=== PATIENT | female | born 1960 | race Caucasian/White ===

== ENCOUNTER 2016-05-27 08:21 | Observation (INO) | payer OTHER ==
[2016-05-27] MEDS ORDERED: MORPHINE SULFATE 2 MG/ML SYRINGE IVP STA (08:24)
[2016-05-27] MEDS ORDERED: NITROGLYCERIN OINT 1 INCH/GM PACKET TOPICAL STA (08:24)
--- NOTE | 2016-05-27 08:30 | ED ---
General Adult HPI - General Stated complaint: chest pain Time Seen by Provider: 05/27/16 08:21 Source: RN notes reviewed - History of Present Illness Initial comments: Is a 56-year-old female with past medical history significant for an LA with a stent placement. Patient also history significant for high blood pressure and continues to smoke. Patient woke up today with severe left-sided chest pain is nonradiating she describes the pain as pressure. Patient states she took a nitro at home and helped when EMS arrived they gave her 2 more nitroglycerin and that helped as well however she still remains a 5 out of 10 pain. Patient states she also feels short of breath with the pain and she was sweating earlier. Patient denies any nausea vomiting per patient denies any abdominal pain patient denies any headache patient denies any lightheadedness dizziness or near syncopal episode. Patient denies any numbness or weakness. Patient denies any recent fever chills or cough. Patient states the pain is similar to the pain she's had previously with an LA. - Related Data Home Medications Medication Instructions Recorded Confirmed ALPRAZolam [Xanax] 0.5 mg PO DAILY@1400 05/27/16 05/27/16 ALPRAZolam [Xanax] 1 mg PO BID@0800,2200 05/27/16 05/27/16 Albuterol Inhaler [Ventolin Hfa 2 puff INHALATION RT-Q6H PRN 05/27/16 05/27/16 Inhaler] Calcitriol 0.25 mcg PO BID 05/27/16 05/27/16 Calcium Carbonate [Calcium] 600 mg PO BID 05/27/16 05/27/16 HYDROcodone/APAP 7.5-325MG [[place] 1 tab PO TID PRN 05/27/16 05/27/16 7.5-325] Levothyroxine Sodium [Synthroid] 112 mcg PO DAILY 05/27/16 05/27/16 Umeclidinium [place] [[place]cr[place] 1 puff INHALATION RT-DAILY 05/27/16 05/27/16 Ellipta] Venlafaxine HCl [Effexor] 75 mg PO DAILY 05/27/16 05/27/16 amLODIPine [Norvasc] 5 mg PO DAILY 05/27/16 05/27/16 Allergies Allergy/AdvReac Type Severity Reaction Status Date / Time fluoxetine [From Prozac] Allergy Unknown Verified 05/27/16 08:42 shellfish derived [Shellfish] Allergy Unknown Verified 05/27/16 08:42 Review of Systems ROS Statement: Those systems with pertinent positive or pertinent negative responses have been documented in the HPI. ROS Other: All systems not noted in ROS Statement are negative. Past Medical History - Past Family History Father Family Medical History: Myocardial Infarction (LA) Additional Family Medical History / Comment(s): Father at the age of 76yrs from a LA. Mother Family Medical History: Myocardial Infarction (LA) Additional Family Medical History / Comment(s): Mother of a LA at the age of 65yrs. General Exam - General Exam Comments Initial Comments: GENERAL: Patient is well-developed and well-nourished. Patient is nontoxic and well- hydrated and is in mild distress. ENT: Neck is soft and supple. No significant lymphadenopathy is noted. Oropharynx is clear. Moist mucous membranes. Neck has full range of motion without eliciting any pain. EYES: The sclera were anicteric and conjunctiva were pink and moist. Extraocular movements were intact and pupils were equal round and reactive to light. Eyelids were unremarkable. PULMONARY: Unlabored respirations. Good breath sounds bilaterally. No audible rales rhonchi or wheezing was noted. CARDIOVASCULAR: There is a regular rate and rhythm without any murmurs gallops or rubs. ABDOMEN: Soft and nontender with normal bowel sounds. No palpable organomegaly was noted. There is no palpable pulsatile mass. SKIN: Skin is clear with no lesions or rashes and otherwise unremarkable. NEUROLOGIC: Patient is alert and oriented x3. Cranial nerves II through XII are grossly intact. Motor and sensory are also intact. Normal speech, volume and content. Symmetrical smile. MUSCULOSKELETAL: Normal extremities with adequate strength and full range of motion. No lower extremity swelling or edema. No calf tenderness. LYMPHATICS: No significant lymphadenopathy is noted PSYCHIATRIC: Normal psychiatric evaluation. Normal interpersonal interactions appears functionally intact in deals appropriately with others. No signs of depression. No signs of anxiety. Course Vital Signs 05/27/16 05/27/16 05/27/16 08:23 08:34 09:55 Temperature 97.4 F L Pulse Rate 72 66 67 Respiratory 18 16 16 Rate Blood Pressure 141/78 124/77 139/85 O2 Sat by Pulse 96 97 99 Oximetry 03/02/17 11:21 Temperature 98.2 F Pulse Rate 69 Respiratory 20 Rate Blood Pressure 146/70 O2 Sat by Pulse 98 Oximetry Medical Decision Making - Medical Decision Making EKG shows a normal sinus rhythm at 71 bpm urine it was 130 QRS is 88 QT interval is 416 QTC is 452. Patient's EKG shows no ST segment elevation or depression or T wave abnormalities are noted. Patient's chest x-ray shows no acute abdomen. Patient's pain was reduced with Nitropaste and morphine in the emergency department. But because of the patient's previous cardiac disease as well as symptoms that were similar to her previous cardiac disease and the fact that nitroglycerin seemed to help her pain I started the patient on heparin I spoke with Dr. Frankel she accepted the admission I wrote admitting orders and consult cardiology I continued heparin Nitropaste and aspirin on the floor. - Lab Data Result diagrams: 05/27/16 08:30 05/27/16 08:30 Lab Results 05/27/16 05/27/16 05/27/16 Range/Units 08:30 08:30 08:30 WBC 10.0 (3.8-10.6) k/uL RBC 4.98 (3.80-5.40) m/uL Hgb 15.6 (11.4-16.0) gm/dL Hct 46.9 H (34.0-46.0) % MCV 94.1 (80.0-100.0) fL MCH 31.3 (25.0-35.0) pg MCHC 33.3 (31.0-37.0) g/dL RDW 13.9 (11.5-15.5) % Plt Count 278 (150-450) k/uL Neutrophils % 61 % Lymphocytes % 30 % Monocytes % 3 % Eosinophils % 4 % Basophils % 1 % Neutrophils # 6.1 (1.3-7.7) k/uL Lymphocytes # 3.0 (1.0-4.8) k/uL Monocytes # 0.3 (0-1.0) k/uL Eosinophils # 0.4 (0-0.7) k/uL Basophils # 0.1 (0-0.2) k/uL PT (9.0-12.0) sec INR (<1.1) APTT (22.0-30.0) sec Sodium 144 (137-145) mmol/L Potassium 4.5 (3.5-5.1) mmol/L Chloride 108 H (98-107) mmol/L Carbon Dioxide 24 (22-30) mmol/L Anion Gap 12 mmol/L BUN 12 (7-17) mg/dL Creatinine 0.58 (0.52-1.04) mg/dL Est GFR (MDRD) Af Amer >60 (>60 ml/min/1.73 sqM) Est GFR (MDRD) Non-Af >60 (>60 ml/min/1.73 sqM) Glucose 101 H (74-99) mg/dL Calcium 9.1 (8.4-10.2) mg/dL Magnesium 2.0 (1.6-2.3) mg/dL Total Bilirubin 0.3 (0.2-1.3) mg/dL AST 29 (14-36) U/L ALT 38 (9-52) U/L Alkaline Phosphatase 78 (38-126) U/L Total Creatine Kinase 135 (30-135) U/L CK-MB (CK-2) 2.0 (0.0-2.4) ng/mL CK-MB (CK-2) Rel Index 1.5 Troponin I <0.012 (0.000-0.034) ng/mL Total Protein 7.4 (6.3-8.2) g/dL Albumin 4.5 (3.5-5.0) g/dL 05/27/16 Range/Units 08:30 WBC (3.8-10.6) k/uL RBC (3.80-5.40) m/uL Hgb (11.4-16.0) gm/dL Hct (34.0-46.0) % MCV (80.0-100.0) fL MCH (25.0-35.0) pg MCHC (31.0-37.0) g/dL RDW (11.5-15.5) % Plt Count (150-450) k/uL Neutrophils % % Lymphocytes % % Monocytes % % Eosinophils % % Basophils % % Neutrophils # (1.3-7.7) k/uL Lymphocytes # (1.0-4.8) k/uL Monocytes # (0-1.0) k/uL Eosinophils # (0-0.7) k/uL Basophils # (0-0.2) k/uL PT 10.3 (9.0-12.0) sec INR 1.0 (<1.1) APTT 24.9 (22.0-30.0) sec Sodium (137-145) mmol/L Potassium (3.5-5.1) mmol/L Chloride (98-107) mmol/L Carbon Dioxide (22-30) mmol/L Anion Gap mmol/L BUN (7-17) mg/dL Creatinine (0.52-1.04) mg/dL Est GFR (MDRD) Af Amer (>60 ml/min/1.73 sqM) Est GFR (MDRD) Non-Af (>60 ml/min/1.73 sqM) Glucose (74-99) mg/dL Calcium (8.4-10.2) mg/dL Magnesium (1.6-2.3) mg/dL Total Bilirubin (0.2-1.3) mg/dL AST (14-36) U/L ALT (9-52) U/L Alkaline Phosphatase (38-126) U/L Total Creatine Kinase (30-135) U/L CK-MB (CK-2) (0.0-2.4) ng/mL CK-MB (CK-2) Rel Index Troponin I (0.000-0.034) ng/mL Total Protein (6.3-8.2) g/dL Albumin (3.5-5.0) g/dL Critical Care Time Critical Care Time: Yes Total Critical Care Time: 35 Disposition Clinical Impression: Unstable angina pectoris Disposition: ADMITTED IP TO THIS [facility] Time of Disposition: 09:42
[2016-05-27] MEDS ORDERED: ONDANSETRON 4 MG/2 ML VIAL IVP STA (08:42)
[2016-05-27 08:47] LABS: Basophils # (A) 0.1 k/uL (0-0.2); Basophils % (A) 1 %; CH 31.5; CHCM 33.6; Eosinophils # (A) 0.4 k/uL (0-0.7); Eosinophils % (A) 4 %; HCT 46.9 % (34.0-46.0); HDW 2.46; HGB 15.6 gm/dL (11.4-16.0); Luc # (Auto) 0.17; Luc % (Auto) 2; Lymphocytes % (A) 30 %; MCH 31.3 pg (25.0-35.0); MCHC 33.3 g/dL (31.0-37.0); MCV 94.1 fL (80.0-100.0); Monocytes # (A) 0.3 k/uL (0-1.0); Monocytes % (A) 3 %; Neutrophils # (A) 6.1 k/uL (1.3-7.7); Neutrophils % (A) 61 %; RBC 4.98 m/uL (3.80-5.40); RDW 13.9 % (11.5-15.5); WBC (Perox) 9.53
[2016-05-27 08:57] LABS: ALT 38 U/L (9-52); AST 29 U/L (14-36); Alkaline Phosphatase 78 U/L (38-126); Anion Gap 12 mmol/L; Blood Urea Nitrogen 12 mg/dL (7-17); Calcium 9.1 mg/dL (8.4-10.2); Carbon Dioxide 24 mmol/L (22-30); Chloride 108 mmol/L (98-107); Glucose 101 mg/dL (74-99); Non-African American GFR(MDRD) >60 (>60 ml/min/1.73 sqM); Potassium 4.5 mmol/L (3.5-5.1); Sodium 144 mmol/L (137-145); Total Bilirubin 0.3 mg/dL (0.2-1.3); Total Protein 7.4 g/dL (6.3-8.2)
[2016-05-27 09:07] LABS: Creatine Kinase 135 U/L (30-135)
[2016-05-27 09:08] LABS: Partial Thromboplastin Time 24.9 sec (22.0-30.0); Prothrombin Time 10.3 sec (9.0-12.0)
--- NOTE | 2016-05-27 09:11 | XR ---
EXAMINATION TYPE: XR chest 2V DATE OF EXAM: 05/27/2016 9:00 AM COMPARISON: NONE HISTORY: Shortness of breath TECHNIQUE: Frontal and lateral views of the chest are obtained. FINDINGS: Scattered senescent parenchymal changes noted. Hyperinflation compatible with COPD. No evidence for infiltrate. No evidence for atelectasis. Heart size is stable. Mediastinal structures are stable and grossly unremarkable. No evidence for hilar prominence. Degenerative changes dorsal spine. IMPRESSION: 1. No evidence for acute pulmonary disease.
[2016-05-27 09:20] LABS: Troponin I <0.012 ng/mL (0.000-0.034)
[2016-05-27] MEDS ORDERED: HEPARIN SODIUM,PORCINE 5,000 UNIT/ML 1 ML VIAL IV ONE (09:34)
[2016-05-27] MEDS ORDERED: NITROGLYCERIN SL TABS 0.4 MG TAB SUBLINGUAL PRN (09:43)
[2016-05-27] MEDS ORDERED: HEPARIN SODIUM,PORCINE/D5W PMX 25,000 UNIT in DEXTROSE/WATER 1 500ML.BAG IV SCH (09:45)
[2016-05-27] MEDS ORDERED: LORazepam 2 MG/ML SYRINGE IV STA (11:15)
[2016-05-27] MEDS: NITROGLYCERIN OINT 1 INCH/GM PACKET TOPICAL SCH ×2 (13:22→20:06)
[2016-05-27 15:24] LABS: Creatine Kinase 104 U/L (30-135)
[2016-05-27 15:37] LABS: Creatine Kinase MB 1.6 ng/mL (0.0-2.4); Troponin I <0.012 ng/mL (0.000-0.034)
[2016-05-27] MEDS ORDERED: ALBUTEROL NEBULIZED 2.5 MG/3 ML INHALATION PRN (15:52)
[2016-05-27] MEDS: HYDROcodone/APAP 7.5-325MG 1 EACH TAB PO PRN ×2 (16:10→21:55)
[2016-05-27] MEDS ORDERED: ALPRAZolam 0.5 MG TAB PO SCH (16:30)
[2016-05-27] MEDS ORDERED: HEPARIN SODIUM,PORCINE 5,000 UNIT/ML 1 ML VIAL IV STA ×2 (17:43→17:48)
--- NOTE | 2016-05-27 17:51 | CONS ---
DATE OF CONSULTATION: Ms. Shankar 56-year-old female with known history of chronic tobacco use, hypertension, who presented with symptoms of chest discomfort. The discomfort occurred after she had a bowel movement. She used to be living in [place] and according to her in 2013 she had an episode of bradycardia that was a combination with long QT with a combination of atenolol in addition to antidepressive medication. She said she had a heart attack, although it does not appear that she had any cardiac catheterization done at that time. The full details of that are not available to me. She has occasional chest discomfort, but yesterday, she had an episode of discomfort during her bowel movement. She has chronic dyspnea on exertion. She is limited by her arthritis. She has no peripheral edema. She has occasional dizziness, palpitation. No recent syncope. No clear PND. No orthopnea. Her coronary risk factors are remarkable for smoking as well as a history of hypertension. She is nondiabetic. Her medications include: Xanax, Ventolin, Ellipta, [place], calcium, Effexor, Norvasc, insulin 75 mg daily and Synthroid. REVIEW OF SYSTEMS: RESPIRATORY SYSTEM: She has chronic obstructive lung disease with emphysema and cough and dyspnea. GI: No recent GI bleeding. No peptic ulcer disease. SYSTEM: No dysuria or hematuria. NERVOUS SYSTEM: No stroke or seizure. She has history of depression and anxiety. PHYSICAL EXAMINATION: She is a 56-year-old female, alert, oriented, in no apparent distress, appears older than stated age. Blood pressure 120/60 with a heart in the 70s. HEAD: Normocephalic. EYES: Sclerae anicteric. NECK: Good upstroke. No jugular venous distention. LUNGS: Clear to auscultation with decreased air exchange bilaterally. HEART: Regular rate and rhythm. S1, S2, no S3, no rub. ABDOMEN: Soft, nontender. EXTREMITIES: No edema. Lab data revealed troponin less than 0.012. BUN and creatinine 12 and 0.58. Hemoglobin of 15.6. EKG revealed a sinus mechanism, normal axis and intervals, no acute changes. Chest x-ray shows no evidence of infiltrate. IMPRESSION: 1. Chest discomfort, has atypical feature for ischemic heart disease, probably noncardiac. 2. History of hypertension. 3. Chronic tobacco use. 4. Arthritis. 5. Questionable history of myocardial infarction, although most likely not an accurate history. RECOMMENDATIONS: From the cardiac standpoint, will obtain serial enzymes. If there is no evidence of myocardial infarction, then I will proceed with a dobutamine stress echocardiogram and I will obtain echocardiogram and Doppler as well. In the meantime, I will try to obtain the prior work-up that was done in [place] and depending on the results of testing, further recommendation will be made. Thank you for this consult. We will follow with you.
[2016-05-27] MEDS: VENLAFAXINE HCL 75 MG TAB PO SCH (18:02)
[2016-05-27] MEDS: LEVOTHYROXINE 112 MCG TAB PO SCH (18:02)
[2016-05-27 20:52] LABS: Creatine Kinase 93 U/L (30-135)
[2016-05-27 21:05] LABS: Creatine Kinase MB 1.3 ng/mL (0.0-2.4); Troponin I <0.012 ng/mL (0.000-0.034)
[2016-05-27] MEDS: CALCIUM CARBONATE 500 MG CHEWABLE PO SCH (21:18)
[2016-05-27] MEDS: CALCITRIOL 0.25 MCG CAP PO SCH (21:18)
[2016-05-27] MEDS: ALPRAZolam 0.5 MG TAB PO SCH (21:19)
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
[2016-05-28] MEDS: HYDROcodone/APAP 7.5-325MG 1 EACH TAB PO PRN ×2 (04:57→11:29)
[2016-05-28] MEDS ORDERED: DOBUTamine DRIP for NUC MED 500 MG in DEXTROSE/WATER 1 250ML.BAG IV ONE (05:00)
[2016-05-28 07:34] LABS: Basophils # (A) 0.1 k/uL (0-0.2); Basophils % (A) 1 %; CH 31.1; CHCM 32.1; Eosinophils # (A) 0.2 k/uL (0-0.7); Eosinophils % (A) 2 %; HCT 44.6 % (34.0-46.0); HDW 2.44; HGB 14.2 gm/dL (11.4-16.0); Luc % (Auto) 3; Lymphocytes # (A) 4.3 k/uL (1.0-4.8); Lymphocytes % (A) 40 %; MCH 31.1 pg (25.0-35.0); MCHC 31.9 g/dL (31.0-37.0); MCV 97.5 fL (80.0-100.0); Mean Platelet Volume 7.4; Monocytes # (A) 0.5 k/uL (0-1.0); Monocytes % (A) 4 %; Neutrophils # (A) 5.4 k/uL (1.3-7.7); Neutrophils % (A) 50 %; RBC 4.57 m/uL (3.80-5.40); RDW 14.1 % (11.5-15.5); WBC 10.7 k/uL (3.8-10.6); WBC (Perox) 10.75
[2016-05-28] MEDS ORDERED: TIOTROPIUM 18 MCG/PUFF INHALER INHALATION SCH (08:00)
[2016-05-28] MEDS: CALCITRIOL 0.25 MCG CAP PO SCH (08:23)
[2016-05-28] MEDS: VENLAFAXINE HCL 75 MG TAB PO SCH (08:23)
[2016-05-28] MEDS: CALCIUM CARBONATE 500 MG CHEWABLE PO SCH (08:23)
[2016-05-28] MEDS: ALPRAZolam 0.5 MG TAB PO SCH (08:23)
[2016-05-28] MEDS: LEVOTHYROXINE 112 MCG TAB PO SCH (08:23)
[2016-05-28] MEDS ORDERED: MORPHINE SULFATE 2 MG/ML SYRINGE IVP PRN (08:41)
--- NOTE | 2016-05-28 08:44 | PN ---
Mrs. Shankar is a 56-year-old female who presented with chest discomfort after a bowel movement. She is feeling better today. Her main complaint is related to her back discomfort. She denies any chest pain. No dizziness. No palpitation. She has no nausea. She continues to be at this time on aspirin, Effexor, Norvasc 5 mg daily, Zofran on a p.r.n. basis. PHYSICAL EXAMINATION: Blood pressure 140/80 with a heart rate in the 60s. LUNGS: Clear. HEART: Regular rate and rhythm. S1, S2, no S3, no rub. ABDOMEN: Soft, nontender. EXTREMITIES: No edema. Lab data revealed troponin less than 0.012. Hemoglobin of 14.2. IMPRESSION: 1. Chest discomfort, atypical for ischemic heart disease. 2. History of chronic back pain with limited activity. 3. History of chronic tobacco use. 4. History of hypertension. RECOMMENDATION: Will proceed with dobutamine stress echocardiogram. If there is no evidence of inducible ischemia, then no further cardiac work-up will be needed.
[2016-05-28] MEDS ORDERED: amLODIPine 5 MG TAB PO SCH (09:00)
[2016-05-28] MEDS ORDERED: ASPIRIN 325 MG TAB PO SCH (09:00)
[2016-05-28 10:32] LABS: Hemoglobin A1C 5.5 % (4.2-6.1)
[2016-05-28] MEDS ORDERED: METOPROLOL TARTRATE 5 MG/5 ML VIAL IVP ONE (11:10)
[2016-05-28] MEDS ORDERED: ATROPINE SULFATE 0.1 MG/ML 10ML SYRINGE ONE (11:10)
--- NOTE | 2016-05-28 12:05 | ECHOF ---
Referral Reason:cp MEASUREMENTS -------- HEIGHT: 162.6 cm WEIGHT: 62.1 kg BP: RVIDd: 2.3 cm (< 3.3) IVSd: 0.9 cm (0.6 - 1.1) LVIDd: 4.4 cm (3.9 - 5.3) LVPWd: 1.2 cm (0.6 - 1.1) IVSs: 1.5 cm LVIDs: 3.0 cm LVPWs: 1.3 cm LA Diam: 2.5 cm (2.7 - 3.8) LAESV Index (A-L): 22.38 ml/m Ao Diam: 2.8 cm (2.0 - 3.7) AV Cusp: 2.1 cm (1.5 - 2.6) LA Diam: 2.5 cm (2.7 - 3.8) MV EXCURSION: 13.059 mm (> 18.000) MV EF SLOPE: 86 mm/s (70 - 150) EPSS: 0.4 cm MV E Rafael: 0.84 m/s MV DecT: 304 ms MV A Rafael: 0.74 m/s MV E/A Ratio: 1.14 FINDINGS -------- Sinus rhythm. This was a technically good study. There is borderline concentric left ventricular hypertrophy. Overall left ventricular systolic function is normal with, an EF between 55 - 60 %. The right ventricle is normal in size. Normal LA size by volume 22+/-6 ml/m2. The right atrium is normal in size. Aortic valve is trileaflet and is mildly thickened. The mitral valve leaflets are mildly thickened. Mild mitral annular calcification present. There is trace mitral regurgitation. Trace tricuspid regurgitation present. Pulmonic valve appears structurally normal. The aortic root size is normal. The inferior vena cava is mildly dilated. Echo free space may represent effusion or a pericardial fat pad. CONCLUSIONS -------- 1. Sinus rhythm. 2. Mild mitral annular calcification present. 3. There is trace mitral regurgitation. 4. Trace tricuspid regurgitation present. 5. Pulmonic valve appears structurally normal. 6. The aortic root size is normal. 7. The inferior vena cava is mildly dilated. 8. Echo free space may represent effusion or a pericardial fat pad. 9. This was a technically good study. 10. There is borderline concentric left ventricular hypertrophy. 11. Overall left ventricular systolic function is normal with, an EF between 55 - 60 %. 12. The right ventricle is normal in size. 13. Normal LA size by volume 22+/-6 ml/m2. 14. The right atrium is normal in size. 15. Aortic valve is trileaflet and is mildly thickened. 16. The mitral valve leaflets are mildly thickened. NANOSCIENCE TECHNICIAN: Dani Syed RDCS
[2016-05-28 12:44] VITALS: BP 112/66; PULSE 63; RESP 14; TEMP 98.5
--- NOTE | 2016-05-28 13:00 | ECHOS ---
DATE OF SERVICE: 05/28/2016 AGE: 56Y SEX: F HT: 64" WT: 137 lbs. Protocol Farhan: Others: Dobutamine Stress Echo Stage: Dur. of Exercise: *Heart Rate Blood Pressure *Rest: 61 Rest: 131/82 * *Max. Achieved: 154 Maximum BP: 152/65 85% PMHR: 141 100% PMHR: 166 *METS: INDICATIONS: Unstable angina. MEDICATIONS: Patient was given dobutamine infusion according to the standard protocol. Peak heart rate of 154 was achieved. Maximum blood pressure of 152/65 mmHg was noted. Resting EKG shows normal sinus rhythm with normal OH interval and QRS duration and normal ST-T waves. No ST segment depression suggestive of ischemia is noted. The patient did not complain of any chest pain during the test. Occasional PVCs are noted. The baseline echocardiographic images reveals a normal left ventricular chamber size with normal left ventricular systolic function. At the peak dose of dobutamine infusion, normal increase in the wall thickness and contractility is noted. FINAL IMPRESSION: This dobutamine stress echocardiographic study is negative for stress-induced ischemia. EKG portion of the stress test is not suggestive of ischemia. Occasional PVCs are noted.
--- NOTE | 2016-06-15 18:35 | P.DS ---
Providers Date of admission: 05/27/16 09:43 Expected date of discharge: 05/28/16 Attending physician: Grace Frankel Primary care physician: Shahab Rodney [facility] Hospital Course: Chest pain sweats lightheaded This is a 56-year-old female patient of Dr. Rodney, she has underlying history of COPD CAD thyroid cancer current tobacco user, hypertensive cardiovascular disease and prior history of syncope. She presented to emergency room with symptoms of nausea sweats lightheadedness while patient was at the bathroom, at the same time patient had chest pain radiating to the neck, she had similar presentation 1 year prior to admission, when she was found to have bradycardia. Patient denies any syncope no seizures no aura prior to this. Patient had a stress Persantine one year ago. In route to the emergency room, nitroglycerin was given for chest pain which has relieved her symptoms she was subsequently admitted to evaluate unstable angina with cardiology consultation FINAL DIAGNOSIS 1. Chest discomfort suspect unstable angina accompanied by lightheadedness and sweats along with nausea, with known risk factors include previous NH and stent placement in the past, current tobacco use, COPD and hyperlipidemia for which she was seen consultation by cardiology. She has cardiac troponins serially monitored are negative along with serial EKGs, patient's currently heparinized and is on Nitropaste. Patient underwent a DOBUTAMIN stress ECHO and was negative for stress induced ischemia 2. COPD without any exacerbation continue in close Lipitor and Ventolin inhaler 3. Known CAD with prior 1 cardiac stent in August 2013 patient is counseled to continue risk modification to include smoking cessation, she is to continue on amlodipine and aspirin, as well as statins patient is not on any statin prior to admission 4. Hypertension on amlodipine 5. Hypothyroidism on levothyroxine 112 g daily Chronic pain on hydrocodone when necessary 7. Anxiety on venlafaxine 75 mg daily and Xanax when necessary DSICHARGE CONDITION STABLE AD IMPROVED Plan - Discharge Summary New Discharge Prescriptions: Aspirin EC [Ecotrin Low Dose] 81 mg PO DAILY #30 tablet. Discharge Medication List ALPRAZolam [Xanax] 0.5 mg PO DAILY@1400 05/27/16 [History] ALPRAZolam [Xanax] 1 mg PO BID@0800,2200 05/27/16 [History] Albuterol Inhaler [Ventolin Hfa Inhaler] 2 puff INHALATION RT-Q6H PRN 05/27/16 [ History] Calcitriol 0.25 mcg PO BID 05/27/16 [History] Calcium Carbonate [Calcium] 600 mg PO BID 05/27/16 [History] HYDROcodone/APAP 7.5-325MG [[place] 7.5-325] 1 tab PO TID PRN 05/27/16 [History] Levothyroxine Sodium [Synthroid] 112 mcg PO DAILY 05/27/16 [History] Umeclidinium [place] [Incruse Ellipta] 1 puff INHALATION RT-DAILY 05/27/16 [ History] Venlafaxine HCl [Effexor] 75 mg PO DAILY 05/27/16 [History] amLODIPine [Norvasc] 5 mg PO DAILY 05/27/16 [History] Aspirin EC [Ecotrin Low Dose] 81 mg PO DAILY #30 tablet. 05/28/16 [Rx] Follow up Appointment(s)/Referral(s): Liza Escamilla MD [STAFF PHYSICIAN] - 3 Weeks Shahab Rodney DO [Primary Care Provider] - 1-2 days Patient Instructions/Handouts: Chest Pain (DC) Discharge Disposition: HOME SELF-CARE
== END 2016-05-28 13:50 | disposition home or self-care (01) ==
LOC: EC 08:21 → 3OBS 09:43
PROVIDERS: ADMIT Family Medicine; ATTEND Family Medicine
DX: R07.89 Other chest pain (principal); R61 Generalized hyperhidrosis; R11.0 Nausea; R42 Dizziness and giddiness; J44.9 Chronic obstructive pulmonary disease, unspecified; I11.9 Hypertensive heart disease without heart failure; I25.10 Atherosclerotic heart disease of native coronary artery without angina pectoris; Z95.5 Presence of coronary angioplasty implant and graft; Z82.49 Family history of ischemic heart disease and other diseases of the circulatory system; F17.200 Nicotine dependence, unspecified, uncomplicated; E78.5 Hyperlipidemia, unspecified; E03.9 Hypothyroidism, unspecified; M54.9 Dorsalgia, unspecified; G89.29 Other chronic pain; F32.9 Major depressive disorder, single episode, unspecified; F41.9 Anxiety disorder, unspecified; F41.0 Panic disorder [episodic paroxysmal anxiety]; M19.042 Primary osteoarthritis, left hand; M19.041 Primary osteoarthritis, right hand; M47.9 Spondylosis, unspecified; M16.0 Bilateral primary osteoarthritis of hip; Z79.899 Other long term (current) drug therapy; Z91.013 Allergy to seafood; Z88.8 Allergy status to other drugs, medicaments and biological substances; Z85.3 Personal history of malignant neoplasm of breast; Z85.850 Personal history of malignant neoplasm of thyroid; I25.2 Old myocardial infarction
CPT/HCPCS: 99291; 96365; 96366; 96376; 96375 ×3; 36415; 94640; 93005; 93017; 93306; 93350; 84439; 80061; 80053; 84443; 83036; 82550; 82553; 83735; 84484; 85025 ×2; 85610; 85730; 71020; G0378 ×2; J2060; J1250; J1644 ×2; J2405; J0461; J2270 ×2

== ENCOUNTER → 2016-06-15 | Outpatient (CLI) | payer OTHER ==
--- NOTE | 2016-06-15 16:30 | BD ---
EXAMINATION TYPE: MG DEXA axial skeleton. DATE OF EXAM: 06/15/2016 10:23 AM COMPARISON: NONE CLINICAL HISTORY: 56-year-old female unspecified osteoarthritis Height: 64 IN Weight: 135 LBS FRAX RISK QUESTIONS: Alcohol (3 or more units per day): NO Family History (Parent hip fracture): NO Glucocorticoids (More than 3mos): NO (Ex: prednisone, prednisolone, methylprednisolone, dexamethasone, and hydrocortisone). History of Fracture in Adulthood: NO Secondary Osteoporosis: 1. Type 1 Diabetes: NO 2. Hyperthyroidism: NO 3. Menopause before 45: NO 4. Malnutrition: NO 5. Chronic liver disease: NO Rheumatoid Arthritis: NO Current Tobacco Use: YES RISK FACTORS HISTORY OF: Smoke tobacco: YES Active: YES Postmenopausal woman: AGE 55 Frequent falls: YES DUE TO LIGHTHEADEDNESS Poor Health: YES MEDICATIONS: Thyroid Medications: YES Which medication: Levothyroxine How Lon 1/2 YRS Additional Medications: CALCIUM, VIT D, LEVOTHYROXINE, AMLODOPINE, VENLEFEXINE, XANAX, HYDROCODONE, I NCRUSE INHALER, PT HAD BREAST CANCER EXAM MEASUREMENTS: Bone mineral densitometry was performed using the [employer] System. Bone mineral density as measured about the Lumbar spine is: ----- L1-L4(G/cm2): 1.575 T Score Values are as follows: ----- L2: 2.8 ----- L3: 3.2 ----- L4: 3.4 ----- L1-L4: 3.3 Bone mineral density BASELINE Bone mineral density about the R hip (g/cm2): 1.102 Bone mineral density about the L hip (g/cm2): 1.068 T Score values are as follows: -----R Neck: 0.5 -----L Neck: 0.2 -----R Intertrochanter: 0.2 -----L Intertrochanter: 0.1 Bone mineral density BASELINE IMPRESSION: Normal (Values between +1 and -1 indicate normal bone mass). Rescreen in 5 years. NOTE: T-SCORE=SD OF THE YOUNG ADULT MEAN.
--- NOTE | 2016-06-23 14:42 | MM ---
Reason for exam: history of breast cancer, conservation therapy. Last mammogram was performed 10 months ago. History: Patient is postmenopausal, has history of high-risk lesion on a previous biopsy at age 55, has history of other cancer at age 54, and is nulliparous. Excisional biopsy of the right breast, May 2015. Benign core biopsy of the left breast, 2009. Benign excisional biopsy of the right breast, 1996. Physical Findings: Nurse did not find any significant physical abnormalities on exam. MG Diagnostic Mammo w CAD KIRSTIN Bilateral CC and MLO view(s) were taken. Prior study comparison: August 01, 2015, mammogram, performed at [facility]. January 28, 2015, mammogram, performed at [facility]. January 15, 2015, mammogram, performed at [facility]. The breast tissue is heterogeneously dense. This may lower the sensitivity of mammography. Stable benign calcifications. Calcifications nodule in the left breast is stable. Stable post operative scarring in the right breast. No significant new findings when compared with previous films. These results were verbally communicated with the patient and result sheet given to the patient on 06/23/16. ASSESSMENT: Benign, BI-RAD 2 RECOMMENDATION: Follow-up diagnostic mammogram of both breasts in 1 year.
== END | disposition home or self-care (01) ==
LOC: RADMAMWWP 10:17
PROVIDERS: ATTEND Family Medicine
DX: Z08 Encounter for follow-up examination after completed treatment for malignant neoplasm (principal); Z85.3 Personal history of malignant neoplasm of breast; M19.90 Unspecified osteoarthritis, unspecified site
CPT/HCPCS: 77080; G0204

== ENCOUNTER 2016-07-14 09:16 | Emergency (ER) | payer OTHER ==
[2016-07-14] MEDS ORDERED: HYDROmorphone 1 MG/ML 1 ML SYRINGE IVP STA (09:28)
[2016-07-14] MEDS ORDERED: PANTOPRAZOLE 40 MG/10 ML VIAL IVP STA (09:28)
[2016-07-14] MEDS ORDERED: SODIUM CHLORIDE 0.9% 500 ML IV STA (09:28)
[2016-07-14] MEDS ORDERED: RX INFO: IV CONTRAST WAS GIVEN 1 EACH MISC MISCELLANE PRN (09:28)
[2016-07-14] MEDS ORDERED: diphenhydrAMINE 50 MG/ML 1 ML VIAL IVP STA (09:30)
[2016-07-14] MEDS ORDERED: methylPREDNISolone SOD SUCCI 125 MG/2 ML VIAL IV STA (09:30)
[2016-07-14] MEDS ORDERED: FAMOTIDINE 20 MG/2 ML VIAL IV STA (09:30)
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
[2016-07-14] MEDS ORDERED: PROMETHAZINE INJ 25 MG/ML 1 ML VIAL IM STA (09:41)
[2016-07-14 09:46] LABS: Basophils # (A) 0.1 k/uL (0-0.2); Basophils % (A) 0 %; CH 32.1; CHCM 33.2; Eosinophils # (A) 0.1 k/uL (0-0.7); Eosinophils % (A) 1 %; HCT 45.8 % (34.0-46.0); HDW 2.38; HGB 14.8 gm/dL (11.4-16.0); Luc # (Auto) 0.12; Luc % (Auto) 1; Lymphocytes # (A) 2.2 k/uL (1.0-4.8); Lymphocytes % (A) 12 %; MCH 31.6 pg (25.0-35.0); MCHC 32.4 g/dL (31.0-37.0); MCV 97.3 fL (80.0-100.0); Mean Platelet Volume 6.7; Monocytes # (A) 0.4 k/uL (0-1.0); Monocytes % (A) 2 %; Neutrophils # (A) 15.3 k/uL (1.3-7.7); Neutrophils % (A) 85 %; RDW 14.5 % (11.5-15.5); WBC 18.1 k/uL (3.8-10.6); WBC (Perox) 17.68
[2016-07-14 09:55] LABS: INR 1.1 (<1.1); Partial Thromboplastin Time 25.6 sec (22.0-30.0); Prothrombin Time 11.4 sec (9.0-12.0)
[2016-07-14 09:59] LABS: ALT 31 U/L (9-52); AST 25 U/L (14-36); Alkaline Phosphatase 87 U/L (38-126); Amylase 97 U/L (30-110); Anion Gap 12 mmol/L; Blood Urea Nitrogen 16 mg/dL (7-17); Calcium 9.1 mg/dL (8.4-10.2); Carbon Dioxide 24 mmol/L (22-30); Chloride 106 mmol/L (98-107); Glucose 123 mg/dL (74-99); Non-African American GFR(MDRD) >60 (>60 ml/min/1.73 sqM); Potassium 3.9 mmol/L (3.5-5.1); Sodium 142 mmol/L (137-145); Total Bilirubin 0.5 mg/dL (0.2-1.3)
[2016-07-14 11:03] LABS: Amorphous Sediment,Urine Moderate /hpf; Appearance,Urine Cloudy (Clear); Bilirubin,Urine Negative (Negative); Glucose,Urine (UA) Negative (Negative); Ketones,Urine 2+ (Negative); Leukocyte Esterase,Urine Trace (Negative); Nitrite,Urine Positive (Negative); PH, Urine 7.5 (5.0-8.0); Particle Count 27346; Protein,Urine Negative (Negative); Squamous Epithelial Cell,Urine 1 /hpf (0-4); UA Billing (MACRO vs. MICRO) MICRO; Urobilinogen,Urine <2.0 mg/dL (<2.0)
[2016-07-14 11:18] VITALS: RESP 16
--- NOTE | 2016-07-14 11:23 | CT ---
EXAMINATION TYPE: CT abdomen pelvis w con DATE OF EXAM: 07/14/2016 11:06 AM HISTORY: Patient complains of generalized abdominal pain, nausea, vomiting, and weakness. CT DLP: 421.9mGycm Automated Exposure Control for Dose Reduction was Utilized. CONTRAST: CT scan of the abdomen and pelvis is performed without oral but with IV Contrast, patient injected wi th 100 mL of Omnipaque 300. COMPARISON: None. FINDINGS: LUNG BASES: No significant abnormality is appreciated. LIVER/GB: No significant abnormality is appreciated. PANCREAS: No significant abnormality is seen. SPLEEN: No significant abnormality is seen. ADRENALS: No significant abnormality is seen. KIDNEYS: Subcentimeter low dense lesion lower pole level left kidney on axial image 24 series 10 is t oo small to further characterize per presumed benign. BOWEL: Evaluation bowel is suboptimal secondary to lack of enteric contrast. There is no suspicious s mall or large bowel dilatation seen. UTERUS/ADNEXA: Uterus is normal in size. There are surgical clips in pelvic cul-de-sac which are susp ected displaced ligation clips. In the right pelvis there are 2 anechoic lesions felt present, larges t inferiorly measures 3.5 x 3.4 cm on axial image 60. Superior anterior lesion measures 2.6 cm on axi al image 56. Suspect right-sided ovarian cysts. Finding can be further investigated and characterized with pelvic ultrasound if desired. Occasional scattered pelvic phleboliths are seen. LYMPH NODES: No greater than 1cm abdominal or pelvic lymph nodes are appreciated. OSSEOUS STRUCTURES: Mild multilevel anterior spurring in lower lumbar spine disc space narrowing is p resent. There is facet arthropathy lower lumbar levels. OTHER: There is moderate mixed plaque in the distal abdominal aorta with slightly more focal noncalci fied plaque in the right common iliac artery after its origin. Stenosis just under 50% is felt presen t. IMPRESSION: 1. No significant finding is seen to account for patient's symptoms. No bowel obstruction is present. 2. There are cystic lesions right adnexa measuring greater than 1 cm, this is abnormal finding in pos tmenopausal female, follow-up nonemergent pelvic ultrasound is advised to further evaluate and charac terize as neoplasm needs to BE excluded.
[2016-07-14 12:17] VITALS: BP 170/90; PULSE 67; TEMP 97.4
[2016-07-14] MEDS ORDERED: ONDANSETRON ODT 4 MG TAB PO STA (12:35)
== END 2016-07-14 12:46 | disposition home or self-care (01) ==
LOC: EC 09:16
DX: R10.84 Generalized abdominal pain (principal); R11.2 Nausea with vomiting, unspecified; I10 Essential (primary) hypertension; J44.9 Chronic obstructive pulmonary disease, unspecified; M19.90 Unspecified osteoarthritis, unspecified site; E07.9 Disorder of thyroid, unspecified; F32.9 Major depressive disorder, single episode, unspecified; F41.9 Anxiety disorder, unspecified; F17.200 Nicotine dependence, unspecified, uncomplicated; Z85.9 Personal history of malignant neoplasm, unspecified; Z86.19 Personal history of other infectious and parasitic diseases; Z90.721 Acquired absence of ovaries, unilateral; Z98.51 Tubal ligation status; Z79.899 Other long term (current) drug therapy; Z88.8 Allergy status to other drugs, medicaments and biological substances; Z91.013 Allergy to seafood
CPT/HCPCS: 99285; 96374; 96375 ×5; 96361; 96372; 36415; 93005; 80053; 82150; 83690; 85025; 85610; 85730; 82272; 81001; 74177; J1200; J2550; J2930; J1170; Q9967; C9113

== ENCOUNTER → 2016-07-21 | Outpatient (CLI) | payer OTHER ==
--- NOTE | 2016-07-21 15:13 | US ---
EXAMINATION TYPE: US pelvis complete transvag DATE OF EXAM: 07/21/2016 2:38 PM COMPARISON: CT 07/14/2016 CLINICAL HISTORY: R10.9 ABD PAIN,N83.20 OVARY CYST. Right ovarian cysts seen on previous CT, 0, history of left oophorectomy and tubal ligation TECHNIQUE: Transvaginal (TV) and Transabdominal (TA) Date of LMP: 1+ year ago EXAM MEASUREMENTS: Uterus: 4.0 x 2.9 x 2.7 cm Endometrial Stripe: 0.3 cm Right Ovary: 5.9 x 4.1 x 3.4 cm Left Ovary: surgically absent 1. Uterus: retroverted, heterogeneous echotexture without any definite lesions seen at this 2. Endometrium: wnl 3. Right Ovary: multiple cystic areas with largest measuring 3.4 x 3.2 x 3.7cm and 2.6 x 2.6 x 2.8cm these correspond to CT findings 4. Left Ovary: surgically absent 5. Bilateral Adnexa: wnl 6. Posterior cul-de-sac: wnl IMPRESSION: 1. Right ovarian cysts. Follow-up in 6 weeks following the next normal menstrual period is recommende dRalf
== END ==
LOC: RADUSWWP 14:13
PROVIDERS: ATTEND Family Medicine
DX: N83.201 Unspecified ovarian cyst, right side (principal)
CPT/HCPCS: 76830; 76856

== ENCOUNTER 2016-12-21 10:27 | Inpatient (IN) | payer MEDICARE, OTHER ==
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
[2016-12-21] MEDS ORDERED: SODIUM CHLORIDE 0.9% 1,000 ML IV STA ×2 (10:45)
[2016-12-21] MEDS ORDERED: RX INFO: IV CONTRAST WAS GIVEN 1 EACH MISC MISCELLANE PRN ×2 (10:49→15:43)
[2016-12-21] MEDS ORDERED: FAMOTIDINE 20 MG/2 ML VIAL IV STA (10:50)
[2016-12-21] MEDS ORDERED: methylPREDNISolone SOD SUCCI 125 MG/2 ML VIAL IV STA (10:50)
[2016-12-21] MEDS ORDERED: ONDANSETRON 4 MG/2 ML VIAL IVP STA (10:50)
[2016-12-21] MEDS ORDERED: diphenhydrAMINE 50 MG/ML 1 ML VIAL IVP STA (10:50)
[2016-12-21 10:54] LABS: Glucose,Whole Blood 135 mg/dL (75-99)
[2016-12-21 11:08] LABS: Basophils # (A) 0.1 k/uL (0-0.2); Basophils % (A) 0 %; CH 33.4; Eosinophils # (A) 0.1 k/uL (0-0.7); Eosinophils % (A) 1 %; HCT 48.4 % (34.0-46.0); HDW 2.37; HGB 15.7 gm/dL (11.4-16.0); Luc # (Auto) 0.11; Luc % (Auto) 1; Lymphocytes # (A) 2.1 k/uL (1.0-4.8); Lymphocytes % (A) 14 %; MCH 32.1 pg (25.0-35.0); MCHC 32.5 g/dL (31.0-37.0); MCV 98.9 fL (80.0-100.0); Mean Platelet Volume 7.5; Monocytes # (A) 0.5 k/uL (0-1.0); Monocytes % (A) 3 %; Neutrophils # (A) 12.6 k/uL (1.3-7.7); Neutrophils % (A) 82 %; RBC 4.89 m/uL (3.80-5.40); RDW 14.8 % (11.5-15.5); WBC 15.4 k/uL (3.8-10.6); WBC (Perox) 15.26
--- NOTE | 2016-12-21 11:15 | CT ---
EXAMINATION TYPE: CT brain wo con DATE OF EXAM: 12/21/2016 HISTORY: Rt side weakness CT DLP: 1132.21 mGycm. Automated Exposure Control for Dose Reduction was Utilized. TECHNIQUE: CT scan of the head is performed without contrast. COMPARISON: None. FINDINGS: There is no acute intracranial hemorrhage or midline shift identified. Ventricular and torres lcal size are felt within normal limits. The globes are intact and the visualized sinuses are clear. IMPRESSION: No acute intracranial hemorrhage or midline shift. Unremarkable study. If clinical conc gali for acute stroke persists further investigation with MRI study may be warranted.
[2016-12-21 11:29] LABS: ALT 43 U/L (9-52); AST 27 U/L (14-36); Alkaline Phosphatase 83 U/L (38-126); Anion Gap 12 mmol/L; Blood Urea Nitrogen 13 mg/dL (7-17); Calcium 9.1 mg/dL (8.4-10.2); Carbon Dioxide 24 mmol/L (22-30); Chloride 105 mmol/L (98-107); Glucose 127 mg/dL (74-99); Magnesium 1.8 mg/dL (1.6-2.3); Non-African American GFR(MDRD) >60 (>60 ml/min/1.73 sqM); Phosphorous 3.8 mg/dL (2.5-4.5); Sodium 141 mmol/L (137-145); Total Bilirubin 0.3 mg/dL (0.2-1.3)
[2016-12-21 11:31] LABS: Partial Thromboplastin Time 23.7 sec (22.0-30.0); Prothrombin Time 10.5 sec (9.0-12.0)
[2016-12-21 11:43] LABS: Creatine Kinase 92 U/L (30-135)
--- NOTE | 2016-12-21 11:52 | CT ---
EXAMINATION TYPE: CT angio head neck DATE OF EXAM: 12/21/2016 HISTORY: Rt side weakness, acute stroke. COMPARISON: NONE CT DLP: 384.84 mGycm. Automated Exposure Control for Dose Reduction was Utilized. TECHNIQUE: CTA scan of the neck is performed with IV Contrast, patient injected with 65 mL of Omnipa que 350, axial images are obtained, coronal and sagittal reformatted images are reviewed. Three-D rec onstructed images are created on an independent workstation and reviewed. FINDINGS: Carotid/Vascular Structures: There is normal three-vessel origin from aortic arch without significant plaque or stenosis. There is minimal noncalcified plaque in aortic arch. The right subclavian artery shows normal origin from right common carotid artery. There is mild mixed plaque at right carotid bu lb. There is no additional significant plaque or stenosis in right common or internal carotid artery. There is patent external carotid artery without significant stenosis. There is mild calcified plaque at left carotid bulb extending into proximal internal carotid artery. There is no significant plaque or stenosis in left common or internal carotid artery. There is patent left external carotid artery without significant plaque or stenosis. Vertebral arteries are patent to basilar junction. No significant plaque or stenosis is seen. Hypopla stic posterior communicating arteries are present bilaterally. Images of the anterior circulation show poor visualization of patent anterior communicating artery. N o significant focal stenosis or aneurysmal change is seen. Other: Mild emphysematous change in the lung apices is present. There is straightening of cervical spine. There is mild to moderate disc space narrowing C4-C5 and C5 -C6 levels with mild spurring. IMPRESSION: 1. Mild atherosclerotic change bilateral carotid bulbs without significant stenosis seen in common or internal carotid arteries bilaterally. 2. No significant focal stenosis or aneurysmal change at level of [place]. Results discussed with [place] neurosurgeon Dr Best at time of dictation.
[2016-12-21 11:56] LABS: Creatine Kinase MB 1.4 ng/mL (0.0-2.4); Troponin I <0.012 ng/mL (0.000-0.034)
[2016-12-21] MEDS ORDERED: ASPIRIN 325 MG TAB PO STA (12:49)
[2016-12-21 13:06] LABS: Amorphous Sediment,Urine Moderate /hpf; Appearance,Urine Cloudy (Clear); Bilirubin,Urine Negative (Negative); Glucose,Urine (UA) Negative (Negative); Ketones,Urine 1+ (Negative); Leukocyte Esterase,Urine Negative (Negative); Nitrite,Urine Negative (Negative); PH, Urine 7.5 (5.0-8.0); Particle Count 11699; Protein,Urine Negative (Negative); Specific Gravity,Urine 1.022 (1.001-1.035); Squamous Epithelial Cell,Urine <1 /hpf (0-4); UA Billing (MACRO vs. MICRO) MICRO; Urobilinogen,Urine <2.0 mg/dL (<2.0)
[2016-12-21] MEDS ORDERED: ONDANSETRON 4 MG/2 ML VIAL IVP PRN ×2 (13:21→18:37)
[2016-12-21] MEDS ORDERED: HYDROmorphone 1 MG/ML 1 ML SYRINGE IVP STA (13:22)
--- NOTE | 2016-12-21 13:38 | XR ---
EXAMINATION TYPE: XR abdomen acute w cxr DATE OF EXAM: 12/21/2016 COMPARISON: NONE HISTORY: TECHNIQUE: Supine, upright, and left side down lateral decubitus views of the abdomen are obtained. FINDINGS: The lungs are clear. No consolidation or pleural effusion. Postsurgical change in the pelvis. Calcifications pelvis appear vascular. Arthropathy of the hips. Ap pears to be contrast within the collecting systems likely related to recent CT scan. IMPRESSION: Nonspecific abdomen.
--- NOTE | 2016-12-21 13:43 | US ---
EXAMINATION TYPE: US carotid duplex BILAT DATE OF EXAM: 12/21/2016 COMPARISON: CT CLINICAL HISTORY: Stenosis. Right side weakness EXAM MEASUREMENTS: RIGHT: Peak Systolic Velocity (PSV) cm/sec ----- Right CCA: 42.6 ----- Right ICA: 65.3 ----- Right ECA: 54.0 ICA/CCA ratio: 1.5 RIGHT: End Diastole cm/sec ----- Right CCA: 11.3 ----- Right ICA: 23.5 ----- Right ECA: 7.8 LEFT: Peak Systolic Velocity (PSV) cm/sec ----- Left CCA: 48.8 ----- Left ICA: 69.7 ----- Left ECA: 47.6 ICA/CCA ratio: 1.4 LEFT: End Diastole cm/sec ----- Left CCA: 11.3 ----- Left ICA: 26.1 ----- Left ECA: 7.0 VERTEBRALS (direction of flow): Right Vertebral: Antegrade Left Vertebral: Antegrade Rhythm: Arrhythmia No significant stenosis seen IMPRESSION: 1. No significant hemodynamic stenosis bilaterally. 2. Atherosclerotic plaque bilaterally. 3. Cardiac dysrhythmia.
[2016-12-21] MEDS: SODIUM CHLORIDE 0.9% 1,000 ML IV SCH ×2 (14:00→21:30)
[2016-12-21] MEDS ORDERED: TRIMETHOBENZAMIDE 100 MG/ML 2 ML VIAL IM STA (14:49)
[2016-12-21] MEDS ORDERED: LABETALOL 5 MG/ML VIAL MDV IVP STA (14:56)
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
[2016-12-21] MEDS ORDERED: ONDANSETRON 4 MG TAB PO PRN (15:44)
[2016-12-21] MEDS ORDERED: ALBUTEROL NEBULIZED 2.5 MG/3 ML INHALATION PRN (15:47)
[2016-12-21 16:48] VITALS: BMI 22.4
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
[2016-12-21] MEDS ORDERED: PROMETHAZINE INJ 25 MG in SODIUM CHLORIDE 0.9% 50 ML IVPB PRN (17:38)
[2016-12-21] MEDS: HYDROmorphone 1 MG/ML 1 ML SYRINGE IVP PRN (17:43)
[2016-12-21] MEDS: ALPRAZolam 0.5 MG TAB PO SCH ×2 (20:15→21:14)
[2016-12-21] MEDS: PANTOPRAZOLE 40 MG TABLET PO SCH (20:15)
[2016-12-21] MEDS: CLOPIDOGREL 75 MG TAB PO SCH (20:15)
[2016-12-21] MEDS: HYDROcodone/APAP 7.5-325MG 1 EACH TAB PO SCH ×2 (20:15→21:14)
[2016-12-21] MEDS: IPRATROPIUM 0.5 MG/2.5 ML NEBU INHALATION SCH (22:21)
[2016-12-21] MEDS: NICOTINE 14MG/24HR PATCH TRANSDERM SCH (22:21)
--- NOTE | 2016-12-21 23:10 | MR ---
EXAMINATION TYPE: MR brain wo/w con DATE OF EXAM: 12/21/2016 COMPARISON: CT brain from earlier today HISTORY: Right-sided hemiparesis, CVA versus demyelinating disease per order. TECHNIQUE: Multiplanar, multisequence images of the brain and brainstem is performed without and with IV contras t, utilizing 6.0 mL intravenous Gadavist gadolinium contrast is administered intravenously. Demyelin ating disease protocol with additional Sagittal Flair sequence performed. FINDINGS: T2 Lesions Present : Yes Approximate Number of Lesions: Approximately 50 Locations Identified : Scattered deep and periventricular as well as subcortical lesions. Size of Reference Lesion(s): 1. 0.7 cm x 0.5 cm x 0.4 cm on axial image 23 and sagittal image 22 posterior right frontal lesion Enhancing Lesion(s) Present: No T1 Hypointense Lesion(s) Present: Yes Change from Prior: N/A Diffusion weighted images demonstrate no evidence of a recent infarct or other diffusion abnormality. There is no worrisome extra-axial fluid collection. The ventricular system and cisternal spaces ar e normal in size and appearance. The brain volume is age appropriate. Midline structures demonstrate normal morphology. The craniocervical junction appears within normal limits. Post contrast images demonstrate no abnormal enhancement. The dural venous sinuses appear pa tent. The visualized sinuses are clear and the globes are intact. IMPRESSION: 1. No evidence of a recent infarct. 2. Moderate nonspecific white matter changes, among the broad differential product of demyelinating d isease would be included.
[2016-12-22] MEDS: HYDROmorphone 1 MG/ML 1 ML SYRINGE IVP PRN ×5 (01:42→23:20)
[2016-12-22 06:11] LABS: Basophils # (A) 0.1 k/uL (0-0.2); Basophils % (A) 0 %; CH 32.9; CHCM 33.4; Eosinophils % (A) 0 %; HCT 43.6 % (34.0-46.0); HDW 2.36; HGB 14.1 gm/dL (11.4-16.0); Luc # (Auto) 0.15; Luc % (Auto) 1; Lymphocytes # (A) 3.6 k/uL (1.0-4.8); Lymphocytes % (A) 24 %; MCHC 32.3 g/dL (31.0-37.0); MCV 98.9 fL (80.0-100.0); Mean Platelet Volume 7.2; Monocytes # (A) 0.8 k/uL (0-1.0); Monocytes % (A) 5 %; Neutrophils # (A) 10.7 k/uL (1.3-7.7); Neutrophils % (A) 69 %; RBC 4.41 m/uL (3.80-5.40); RDW 14.6 % (11.5-15.5); WBC 15.4 k/uL (3.8-10.6); WBC (Perox) 14.69
[2016-12-22 06:30] LABS: ALT 31 U/L (9-52); AST 20 U/L (14-36); Alkaline Phosphatase 59 U/L (38-126); Anion Gap 11 mmol/L; Blood Urea Nitrogen 12 mg/dL (7-17); Calcium 8.2 mg/dL (8.4-10.2); Carbon Dioxide 24 mmol/L (22-30); Chloride 105 mmol/L (98-107); Cholesterol 174 mg/dL (<200); Glucose 97 mg/dL (74-99); HDL Cholesterol 76 mg/dL (40-60); Non-African American GFR(MDRD) >60 (>60 ml/min/1.73 sqM); Potassium 3.7 mmol/L (3.5-5.1); Sodium 140 mmol/L (137-145); Total Bilirubin 0.2 mg/dL (0.2-1.3); Total Protein 6.5 g/dL (6.3-8.2)
[2016-12-22] MEDS ORDERED: LEVOTHYROXINE 112 MCG TAB PO SCH (06:30)
[2016-12-22] MEDS: PANTOPRAZOLE 40 MG TABLET PO SCH (06:35)
[2016-12-22] MEDS: ALPRAZolam 0.5 MG TAB PO SCH ×3 (07:06→17:31)
[2016-12-22] MEDS: DOCUSATE 100 MG CAP PO SCH (08:59)
[2016-12-22] MEDS: CLOPIDOGREL 75 MG TAB PO SCH (08:59)
[2016-12-22] MEDS: NICOTINE 14MG/24HR PATCH TRANSDERM SCH (08:59)
[2016-12-22] MEDS ORDERED: ARIPiprazole 2 MG TAB PO SCH (09:00)
[2016-12-22] MEDS: VENLAFAXINE HCL ER 150 MG CAP PO SCH (09:00)
[2016-12-22] MEDS: amLODIPine 5 MG TAB PO SCH (09:00)
[2016-12-22] MEDS: HYDROcodone/APAP 7.5-325MG 1 EACH TAB PO SCH ×4 (09:10→21:15)
[2016-12-22] MEDS: IOHEXOL 350 MG/ML 25 ML BOTTLE (ORAL USE) PO PRN ×3 (09:31→10:37)
--- NOTE | 2016-12-22 10:29 | ECHOF ---
Referral Reason:Thrombus MEASUREMENTS -------- HEIGHT: 165.1 cm WEIGHT: 61.2 kg BP: IVSd: 1.0 cm (0.6 - 1.1) LVIDd: 4.4 cm (3.9 - 5.3) LVPWd: 1.0 cm (0.6 - 1.1) IVSs: 1.5 cm LVIDs: 2.8 cm LVPWs: 1.6 cm LAESV Index (A-L): 21.02 ml/m Ao Diam: 3.3 cm (2.0 - 3.7) AV Cusp: 2.1 cm (1.5 - 2.6) LA Diam: 3.6 cm (2.7 - 3.8) MV EXCURSION: 23.384 mm (> 18.000) MV EF SLOPE: 107 mm/s (70 - 150) EPSS: 0.4 cm MV E Rafael: 0.76 m/s MV DecT: 267 ms MV A Rafael: 0.74 m/s MV E/A Ratio: 1.02 RAP: 5.00 mmHg RVSP: 8.59 mmHg FINDINGS -------- Resting bradycardia (HR<60bpm). This was a technically adequate study. The left ventricular size is normal. Left ventricular wall thickness is normal. Overall left ventricular systolic function is normal with, an EF between 65 - 70 %. The right ventricle is normal in size and function. Normal LA size by volume 22+/-6 ml/m2. The right atrium is normal in size. Aortic valve is trileaflet and is mildly thickened. There is no evidence of aortic regurgitation. There is no evidence of aortic stenosis. The mitral valve leaflets are mildly thickened. There is trace mitral regurgitation. Trace tricuspid regurgitation present. Right ventricular systolic pressure is normal at < 35 mmHg. There is no evidence of pulmonary hypertension. The pulmonic valve was not well visualized. The aortic root size is normal. Normal inferior vena cava with normal inspiratory collapse consistent with estimated right atrial pressure of 5 mmHg. There is a trivial pericardial effusion present. CONCLUSIONS -------- 1. Resting bradycardia (HR<60bpm). 2. Right ventricular systolic pressure is normal at < 35 mmHg. 3. There is no evidence of pulmonary hypertension. 4. The pulmonic valve was not well visualized. 5. The aortic root size is normal. 6. There is a trivial pericardial effusion present. 7. This was a technically adequate study. 8. The left ventricular size is normal. 9. Overall left ventricular systolic function is normal with, an EF between 65 - 70 %. 10. Normal LA size by volume 22+/-6 ml/m2. 11. Aortic valve is trileaflet and is mildly thickened. 12. The mitral valve leaflets are mildly thickened. 13. There is trace mitral regurgitation. 14. Trace tricuspid regurgitation present. FURNITURE INSTALLER: Akira Hernandez RDCS
--- NOTE | 2016-12-22 11:28 | CT ---
EXAMINATION TYPE: CT abdomen pelvis w con DATE OF EXAM: 12/22/2016 COMPARISON: 07/14/2016 HISTORY: RLQ pain CONTRAST: CT scan of the abdomen and pelvis is performed with Oral Contrast and with IV Contrast, patient injec aditya with 100 mL of Omnipaque 300. FINDINGS: LUNG BASES-: No visible nodule. No infiltrate. LIVER/GB: No calcified gallstones. Contrast is seen within the gallbladder lumen from vicarious ex cretion. No space occupying hepatic lesion. Mild intra and extra hepatic biliary ductal dilatation of uncertain etiology. There is evidence of hepatomegaly. PANCREAS: No inflammation. No distinct mass. SPLEEN: No splenic enlargement. No lesion seen. ADRENALS: No nodule. No thickening. KIDNEYS/BLADDER: No hydronephrosis. No nephrolithiasis. No disctinct renal mass. Urinary bladder g rossly unremarkable. BOWEL: The appendix is not clearly visualized. Normal bowel caliber. No inflammation. GENITAL ORGANS: Bilobed cyst right adnexa persists with each component measuring 4.0 and 3.0 cm resp ectively. No significant interval change is appreciated. The uterus and left ovary are unremarkable. There appear to be tubal ligation changes. LYMPH NODES: No greater than 1cm abdominal or pelvic lymph nodes are appreciated. AORTA: No significant abnormality. OSSEOUS STRUCTURES: No significant abnormality is seen. OTHER: No significant additional abnormality is seen. IMPRESSION: 1. Essentially stable bilobed cyst right adnexa. 2. Nonvisualization of the appendix however no inflammatory process is identified within the right lo wer quadrant at this time. 3. Hepatomegaly. 4. Mild intra and extrahepatic biliary ductal prominence of uncertain etiology.
[2016-12-22] MEDS: IPRATROPIUM 0.5 MG/2.5 ML NEBU INHALATION SCH ×3 (12:40→23:26)
[2016-12-22] MEDS: SODIUM CHLORIDE 0.9% 1,000 ML IV SCH ×2 (12:43→23:19)
--- NOTE | 2016-12-22 16:28 | P.PN ---
Subjective This is a 56-year-old female patient of Dr. Rodney, she has underlying history of COPD CAD thyroid cancer current tobacco user, hypertensive cardiovascular disease and prior history of syncope. She presented to emergency room with symptoms of nausea sweats lightheadedness while patient was at the bathroom, 6:30 this morning, patient was having some diaphoresis, normal bowel movement was noted, she continues to have right lower quadrant pain for several months now, known to have a right ovarian cyst followed by INDUSTRIAL MANUFACTURING TECHNICIAN at [facility], also on 6:30 this morning, patient tried walking out of the bathroom felt lightheaded and dizzy, she noted a decrease heart rate without any chest pain or palpitations, patient noted right lower extremity weakness and right upper extremity weakness, patient did not fall, she reports on some slight slurred speech and no facial droop, she was subsequently sent in by EMS for evaluation. When the emergency room, NIH score was reported to be 11, she is outside the window of the tpa protocol, and was admitted for the above reasons, consults to neurology. Patient denies any previous CVA in the past, no MS, no seizures, she looks chronically sick and depressed and miserab;efrom the nausea and right lower quadrant pain. No fever patient has chills no diarrhea no hematuria she was recently at [facility] emergency room for the right lower quadrant pain, transvaginal ultrasound performed at that time shows 2 simple appearing cystic lesions 3-4 cm in size, intermittent torsion cannot be excluded given the patient's symptoms, this is based on a transvaginal ultrasound performed 12/17/2016,, urinalysis shows no hematuria with 1-2 RBC, urine WBC is 6-15, she was growing lactobacilli over 100,000 colonies and under 50,000 colonies of strep, she had recent pelvic ultrasound and CT abdomen and pelvis also from Aug 12 2016. In the emergency room, acute abdominal series CT of the brain and CT of the neck was performed showing no critical E significant stenosis, in the ICA, mild plaque formation, there is hypoplastic posterior complicating arteries bilaterally, COPD changes were noted from the CTA along with mild to moderate disc space narrowing C4-C5 C5-C6 imaging studies were discussed with [place] neurosurgeon Dr. Best at the time of dictation brain CT shows no acute endocrine hemorrhage or midline shift, no acute changes EKG shows sinus bradycardia heart rate 46, no QT prolongation. Consult were made with Dr. Brown neurology, patient was on aspirin and he would add Plavix to treatment 12/22: Carotid ultrasound shows no significant hemodynamic stenosis bilaterally. MRI of the brain shows no recent infarct. Moderate nonspecific white matter changes, among the broad differential product of demyelinating disease could be included. Patient has been seen by Dr. Higginbotham with recommendations as patient has acute change in her abdominal exam, pelvic ultrasound with Doppler flow to the ovaries could be diagnostic of torsion. TSH is elevated 7.790 and free T4 is at 0.76. Levothyroxine increased 125 g daily. Cortisol level was 73. Leukocytosis remains same of 15.4. Patient states that she does not feel well in general. She does complain of nausea and feeling cold. She denies any fever. She complains of double vision. She continues to have right lower quadrant tenderness for which a surgical consult will be requested to rule out appendicitis. Patient has been started on statin. Objective - Vital Signs Vital signs: Vital Signs Temp 97.5 F L 12/22/16 03:50 Pulse 55 L 12/22/16 04:00 Resp 17 12/22/16 04:00 BP 109/66 12/22/16 03:50 Pulse Ox 100 12/22/16 03:50 Intake & Output 12/21/16 12/22/16 12/22/16 18:59 06:59 18:59 Intake Total 800 100 Output Total 425 Balance -425 800 100 Weight 61.2 kg 61 kg Intake: Intake, IV Titration 800 Amount Sodium Chloride 0.9% 1, 800 000 ml @ 100 mls/hr IV . Q10H [facility] Rx#:[id number] Oral 100 Output: Urine 400 Emesis 25 Other: Voiding Method Bedside Commode Bedside Commode - Exam General appearance: cooperative, no acute distress - EENT Eyes: anicteric sclerae, EOMI, PERRLA, normal appearance ENT: hearing grossly normal, NA/AT, normal oropharynx - Respiratory Respiratory: bilateral: CTA, negative: diminished, dullness, rales - Cardiovascular Rhythm: regular Heart sounds: normal: S1, S2 Abnormal Heart Sounds: no systolic murmur, no diastolic murmur, no rub, no S3 Gallop, no S4 Gallop, no click, no other - Gastrointestinal General gastrointestinal: normal bowel sounds, soft - Integumentary Integumentary: normal, normal turgor - Neurologic Neurologic: CNII-XII intact - Musculoskeletal Musculoskeletal: right sided weakness - Psychiatric Psychiatric: A&O x's 3, appropriate affect, intact judgment & insight - Labs CBC & Chem 7: 12/22/16 05:44 12/22/16 05:44 Labs: Abnormal Lab Results - Last 24 Hours (Table) 12/21/16 12/21/16 12/21/16 Range/Units 10:42 10:43 10:43 WBC 15.4 H (3.8-10.6) k/uL Hct 48.4 H (34.0-46.0) % Neutrophils # 12.6 H (1.3-7.7) k/uL Glucose 127 H (74-99) mg/dL POC Glucose (mg/dL) 135 H (75-99) mg/dL Calcium (8.4-10.2) mg/dL HDL Cholesterol (40-60) mg/dL TSH (0.465-4.680) mIU/L Free T4 (0.78-2.19) ng/dL Urine Appearance (Clear) Urine Ketones (Negative) Amorphous Sediment (None) /hpf Hyaline Casts (0-2) /lpf 12/21/16 12/22/16 12/22/16 Range/Units 12:36 05:44 05:44 WBC 15.4 H (3.8-10.6) k/uL Hct (34.0-46.0) % Neutrophils # 10.7 H (1.3-7.7) k/uL Glucose (74-99) mg/dL POC Glucose (mg/dL) (75-99) mg/dL Calcium 8.2 L (8.4-10.2) mg/dL HDL Cholesterol 76 H (40-60) mg/dL TSH 7.790 H (0.465-4.680) mIU/L Free T4 0.76 L (0.78-2.19) ng/dL Urine Appearance Cloudy H (Clear) Urine Ketones 1+ H (Negative) Amorphous Sediment Moderate H (None) /hpf Hyaline Casts 4 H (0-2) /lpf Microbiology - Last 24 Hours (Table) 12/21/16 12:36 Urine Culture - Preliminary Urine,Voided Assessment and Plan Plan: 1. New right-sided hemiparesis with no prior history of CVA, risk factors noted , patient will be started on Plavix along with aspirin 81 mg, patient we will obtain MRI of the brain with and without contrast, cannot rule out underlying other neurologic disorders to include multiple sclerosis, hyperactive DTRs noted. Patient had a negative CTA carotids, echocardiogram will be obtained , neurology with Dr. Brown, atorvastatin 2. Persistent right lower quadrant pain with known history of right ovarian cyst, 3-4 cm right side, C125 will be obtained she is postmenopausal, she follows with an INDUSTRIAL MANUFACTURING TECHNICIAN as an outpatient however with the persistence of symptoms and based on recent imaging, intermittent torsion cannot be ruled out secondary to symptoms, consult with Dr. Webster CAT scan of the abdomen and pelvis will be obtained to evaluate for the appendix and the right side of the colon particularly the ileum and cecum, consult general surgeon to rule out appendicitis 3. Gastritis with recurrent nausea, Tigan/Zofran for symptom control, patient reported to have prolonged QT, her EKG currently shows a normal QT level, start on PPI 4. Transient history of prolonged QT prolongation, none currently 5. Chronic tobacco dependency, known history of COPD without any exacerbation nicotine patch 14, when necessary albuterol 6. Known CAD with prior 1 cardiac stent in August 2013 patient is counseled to continue risk modification to include smoking cessation, she is to continue on amlodipine and aspirin, as well as statins patient is not on any statin prior to admission 7. Mild dehydration with hyaline casts noted, maintain IV hydration which will be transitioned to oral nutrition 8. COPD without any exacerbation continue in close Lipitor and Ventolin inhaler 8. Hypertension on amlodipine 9. Hypothyroidism on levothyroxine 112 g daily 10 Chronic pain on hydrocodone when necessary 11. Anxiety on venlafaxine 75 mg daily and Xanax when necessary DVT prophylaxis GI prophylaxis Discharge plan: Return home Impression and plan of care have been directed as dictated by the signing physician. Lina Jj nurse practitioner acting as scribe for signing physician.
[2016-12-22] MEDS: ATORVASTATIN 40 MG TAB PO SCH (21:15)
[2016-12-22] MEDS: ARIPiprazole 2 MG TAB PO SCH (21:15)
[2016-12-23] MEDS: ALPRAZolam 0.5 MG TAB PO SCH ×5 (00:24→23:30)
[2016-12-23] MEDS: HYDROmorphone 1 MG/ML 1 ML SYRINGE IVP PRN ×5 (03:42→21:50)
[2016-12-23] MEDS: IPRATROPIUM 0.5 MG/2.5 ML NEBU INHALATION SCH ×3 (06:06→23:31)
[2016-12-23] MEDS: PANTOPRAZOLE 40 MG TABLET PO SCH (06:06)
[2016-12-23] MEDS: LEVOTHYROXINE 125 MCG TAB PO SCH (06:06)
[2016-12-23 06:23] LABS: Glucose,Whole Blood 150 mg/dL (75-99)
[2016-12-23 06:42] LABS: Basophils % (A) 0 %; CH 31.9; CHCM 31.7; Eosinophils # (A) 0.1 k/uL (0-0.7); Eosinophils % (A) 1 %; HCT 43.7 % (34.0-46.0); HDW 2.37; Luc # (Auto) 0.06; Luc % (Auto) 1; Lymphocytes # (A) 1.2 k/uL (1.0-4.8); Lymphocytes % (A) 10 %; MCH 32.5 pg (25.0-35.0); MCHC 32.1 g/dL (31.0-37.0); MCV 101.4 fL (80.0-100.0); Macrocytosis Slight; Mean Platelet Volume 6.8; Monocytes # (A) 0.1 k/uL (0-1.0); Monocytes % (A) 1 %; Neutrophils # (A) 10.6 k/uL (1.3-7.7); Neutrophils % (A) 88 %; RBC 4.31 m/uL (3.80-5.40); RDW 14.1 % (11.5-15.5); WBC 12.2 k/uL (3.8-10.6); WBC (Perox) 12.45
[2016-12-23 06:53] LABS: ALT 30 U/L (9-52); AST 19 U/L (14-36); Alkaline Phosphatase 65 U/L (38-126); Anion Gap 9 mmol/L; Blood Urea Nitrogen 11 mg/dL (7-17); Carbon Dioxide 23 mmol/L (22-30); Chloride 105 mmol/L (98-107); Glucose 146 mg/dL (74-99); Non-African American GFR(MDRD) >60 (>60 ml/min/1.73 sqM); Potassium 4.3 mmol/L (3.5-5.1); Sodium 137 mmol/L (137-145); Total Bilirubin 0.2 mg/dL (0.2-1.3); Total Protein 6.4 g/dL (6.3-8.2)
[2016-12-23] MEDS: NICOTINE 14MG/24HR PATCH TRANSDERM SCH (07:50)
[2016-12-23] MEDS: DOCUSATE 100 MG CAP PO SCH (07:51)
[2016-12-23] MEDS: CLOPIDOGREL 75 MG TAB PO SCH (07:51)
[2016-12-23] MEDS: VENLAFAXINE HCL ER 150 MG CAP PO SCH (07:52)
[2016-12-23] MEDS: amLODIPine 5 MG TAB PO SCH (07:52)
[2016-12-23] MEDS: INSULIN LISPRO (humaLOG) 300 UNIT/3 ML VIAL SQ SCH ×4 (07:56→20:19)
--- NOTE | 2016-12-23 08:17 | P.PN ---
Subjective Principal diagnosis: Weakness and abdominal pain Complaining of ongoing significant fatigue and weakness. She has nausea when attempting to have a bowel movement. She reports her right-sided abdominal pain is somewhat improved today. She was up to the bathroom this morning and felt extremely dizzy. CT of abdomen and pelvis confirms stable right sided adnexal simple cyst measuring 3 cm and 4 cm respectively. Comparison to recent transvaginal ultrasound on 12/18/2015 shows stability over time. This report also commented on a bilobed simple right adnexal cyst, measuring approximately 4 cm. Normal venous blood flow. I had a long discussion with the patient today regarding her ovarian cysts. She has been following these for the last 6 months along with her regular behavioral health director and they have determined that in light of her other medical conditions surgery is not warranted. She has had normal CA-125 levels in the outpatient setting. Objective - Vital Signs Vital signs: Vital Signs Temp 96.8 F L 12/23/16 03:50 Pulse 48 L 12/23/16 03:50 Resp 18 12/23/16 03:50 BP 103/67 12/23/16 03:50 Pulse Ox 94 L 12/23/16 03:50 Intake & Output 12/22/16 12/23/16 12/23/16 18:59 06:59 18:59 Intake Total 440 Balance 440 Weight 63 kg Intake: IV 20 Sodium Chloride 0.9% 1, 20 000 ml @ 100 mls/hr IV . Q10H [facility] Rx#:[id number] Oral 420 Other: Voiding Method Toilet Toilet # Voids 1 3 - Constitutional General appearance: Present: disheveled, no acute distress - Gastrointestinal General gastrointestinal: Present: soft, tenderness Localized gastrointestinal: tender: RLQ - Labs CBC & Chem 7: 12/23/16 06:07 12/23/16 06:07 Labs: Abnormal Lab Results - Last 24 Hours (Table) 12/23/16 12/23/16 12/23/16 Range/Units 06:07 06:07 06:22 WBC 12.2 H (3.8-10.6) k/uL MCV 101.4 H (80.0-100.0) fL Neutrophils # 10.6 H (1.3-7.7) k/uL Glucose 146 H (74-99) mg/dL POC Glucose (mg/dL) 150 H (75-99) mg/dL Calcium 8.0 L (8.4-10.2) mg/dL Microbiology - Last 24 Hours (Table) 12/21/16 12:36 Urine Culture - Final Urine,Voided - Imaging and Cardiology CT scan - abdomen: report reviewed CT scan - pelvis: report reviewed Assessment and Plan (1) Abdominal pain Status: Acute (2) Bradycardia Status: Acute (3) Cerebrovascular accident Status: Acute (4) Constipation Status: Acute (5) Weakness Status: Acute (6) Ovarian cyst Narrative/Plan: Stable simple right ovarian cyst. I had a long discussion with Laura this morning regarding pros and cons of surgery. Her pain is somewhat better this morning and her larger concern at this point is her fatigue nausea and weakness. We discussed the ovarian cyst is not the source of these symptoms and surgical removal will not improve this. I do not believe this cyst is suspicious for a malignancy, hemorrhage or infection at this time. Based on our discussion at this point the patient declines surgery I believe this is a reasonable choice. She does not have a surgical abdomen. I will continue to follow along. She does have an appointment with her regular behavioral health director to discuss elective outpatient surgical management ovarian cyst on December 29. Status: Acute
--- NOTE | 2016-12-23 08:42 | CONS ---
CONSULTATION DATE OF CONSULTATION: 12/22/2016 CHIEF COMPLAINT: Right-sided weakness. HISTORY OF PRESENT ILLNESS: Mrs Shankar is a pleasant 56-year-old female, who is being evaluated today on 12/22/2016 by the neurology service per the request of Dr. Pagan for right-sided weakness. The patient was brought into [facility] Emergency Room with complaint of weakness on her right side along with nausea and abdominal pain. She is being worked up for her abdominal pain by the admitting physician. Regarding her right- sided weakness, she states that the symptoms began a couple of days prior to her arrival and had been somewhat getting worse. She states that she has had several neurological symptoms for the past several years that would come and go including extremity numbness and weakness. She states that she has not followed up with any neurologist regarding these symptoms. She states that she has not even addressed this with her primary care physician in the past. A CT scan of the brain was done on arrival which was normal. Her carotid Doppler showed no hemodynamically significant stenosis. She also had a CT angiogram of the brain which showed no evidence of any aneurysms or stenosis. CT angiogram of the neck was also done which again showed no significant stenosis. Her CBC showed mild leukocytosis at 15.4, and her comprehensive metabolic profile, cardiac enzymes and urinalysis were normal. The patient does take aspirin 81 mg daily at home. The patient was admitted for further workup and management. At the time of my evaluation, she is lying in her bed and appears to be in no acute distress. She denied any changes in her right-sided weakness. An MRI of the brain was done which showed no evidence of any acute ischemia. The study, however, did show multiple white matter lesions concerning for demyelinating disease. Over 50 lesions were identified. PAST MEDICAL HISTORY: Coronary artery disease, angina, chronic obstructive pulmonary disease, hypertension, history of myocardial infarction, osteoarthritis, hypothyroidism, history of thyroidectomy, history of breast cancer with surgical resection, orthopedic surgeries, , coronary artery stent placement, tubal ligation, history of posttraumatic stress disorder, depression, anxiety disorder, and panic disorder. SOCIAL HISTORY: The patient is a current every day smoker. She occasionally drinks alcohol. She occasionally smokes marijuana. FAMILY HISTORY: Positive for heart disease. HOME MEDICATIONS: Reviewed in the chart. ALLERGIES: PROZAC, MORPHINE, SHELLFISH. REVIEW OF SYSTEMS: CONSTITUTIONAL: Positive for fatigue. EYES: Negative. ENT: Negative. CARDIOVASCULAR: Positive for occasional chest pain. RESPIRATORY: Positive for occasional shortness of breath. NEUROLOGICAL: As mentioned above. GASTROINTESTINAL: Positive for occasional heartburn and as mentioned above. GENITOURINARY: Negative. ENDOCRINE: Positive for hypothyroidism. MUSCULOSKELETAL: Positive for frequent joint pain. DERMATOLOGICAL: Negative. PSYCHIATRIC: Positive for history of anxiety disorder and depression. PHYSICAL EXAM: Vital signs show a temperature of 97.4, pulse 54, respiration 18, blood pressure 190/90. GENERAL APPEARANCE: The patient is a well-developed female, who appears to be in no acute distress. HEENT: Normocephalic, atraumatic, no facial asymmetry is seen. NECK: Supple with no masses felt. CARDIOVASCULAR: Bradycardic rate with a normal rhythm. ABDOMEN: Soft with tenderness to palpation felt. Extremities showed no edema or clubbing. NEUROLOGICAL EXAM: The patient is awake and oriented x3. Speech and language are normal. Strength is 4- out of 5 on the right and 5 out of 5 on the left. Sensory exam showed diminished light touch sensation on the right compared to the left. No facial asymmetry is seen on cranial nerve testing. Pronator drift is present on the right side. No seizure-like activity is seen. IMPRESSION: 1. Right hemiparesis. 2. White-matter disease, concerning for demyelinating disease. 3. Uncontrolled hypertension. 4. Tobacco dependence. 5. Abdominal pain. RECOMMENDATION: The patient continues to have weakness on the right side. I did review her MRI of the brain which showed no evidence of any acute ischemia. The study did show over 50 white matter lesions. The patient states that she has had recurrent neurological symptoms for several years, but has never sought any medical attention for this. The patient will need further outpatient neurological workup for possible multiple sclerosis. For now, I will start her on IV Solu-Medrol 250 mg every 8 hours. I will consult Physical Therapy and Occupational Therapy. If her blood pressure continues to be elevated then I do recommend adjusting her hypertension medications. Continue the rest of your current workup regarding her abdominal pain. I will continue to follow with you. Further recommendations to follow. Thank you for allowing me to participate in the care of your patient. If you have any questions, please feel free to contact me. MMODL / IJN: [id number] /
[2016-12-23] MEDS: HYDROcodone/APAP 7.5-325MG 1 EACH TAB PO SCH ×4 (09:00→23:02)
[2016-12-23] MEDS: SODIUM CHLORIDE 0.9% 1,000 ML IV SCH ×2 (11:10→18:10)
[2016-12-23 11:42] LABS: Glucose,Whole Blood 144 mg/dL (75-99)
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
[2016-12-23 16:59] LABS: Glucose,Whole Blood 142 mg/dL (75-99)
--- NOTE | 2016-12-23 17:23 | P.PN ---
Subjective Principal diagnosis: Patient is a pleasant 56-year-old female who is being followed by the neurology service for right-sided weakness. Patient came to [facility] complaining of right sided weakness, nausea, and abdominal pain. Currently she is being worked up for her abdominal pain. Computed tomography scan of the brain was done on arrival which was normal. She also had CT angio of the brain which showed no evidence of any aneurysm or stenosis. CT angiogram of the neck was also done which again showed no significant stenosis. MRI of the brain was done which showed evidence of over 50 white matter lesions. MRI of the brain did not show any evidence of acute ischemia. At the time of my evaluation, patient's resting comfortably in bed and appears to be in no acute distress. Objective - Vital Signs Vital signs: Vital Signs Temp 97.8 F 12/23/16 15:00 Pulse 53 L 12/23/16 15:00 Resp 16 12/23/16 15:39 BP 139/73 12/23/16 15:00 Pulse Ox 97 12/23/16 15:00 Intake & Output 12/22/16 12/23/16 12/23/16 18:59 06:59 18:59 Intake Total 440 820 Balance 440 820 Weight 63 kg Intake: IV 20 700 Sodium Chloride 0.9% 1, 20 700 000 ml @ 100 mls/hr IV . Q10H [facility] Rx#:[id number] Oral 420 120 Other: Voiding Method Toilet Toilet Toilet # Voids 1 3 - Exam PHYSICAL EXAM: GENERAL APPEARANCE: Patient is a well-developed, female who appears to be in no acute distress. HEENT: Normocephalic, atraumatic, no facial asymmetry is seen. Neck is supple with no masses felt. CARDIOVASCULAR: Regular rate and rhythm. ABDOMEN: Nontender, nondistended. EXTREMITIES: Show no edema or clubbing. NEUROLOGICAL EXAM: Patient is awake, alert, and oriented 3. Speech and language are normal. Strength is 4-/5 on the right and 5/5 on the left. Sensory exam is diminished to light touch on the right as compared to the left. No facial asymmetry seen on cranial nerve testing. No tremors or seizure- like activity noted. - Labs CBC & Chem 7: 12/23/16 06:07 12/23/16 06:07 Labs: Abnormal Lab Results - Last 24 Hours (Table) 12/23/16 12/23/16 12/23/16 Range/Units 06:07 06:07 06:22 WBC 12.2 H (3.8-10.6) k/uL MCV 101.4 H (80.0-100.0) fL Neutrophils # 10.6 H (1.3-7.7) k/uL Glucose 146 H (74-99) mg/dL POC Glucose (mg/dL) 150 H (75-99) mg/dL Calcium 8.0 L (8.4-10.2) mg/dL 12/23/16 12/23/16 Range/Units 11:40 16:57 WBC (3.8-10.6) k/uL MCV (80.0-100.0) fL Neutrophils # (1.3-7.7) k/uL Glucose (74-99) mg/dL POC Glucose (mg/dL) 144 H 142 H (75-99) mg/dL Calcium (8.4-10.2) mg/dL Assessment and Plan Plan: Impression: 1. Right hemiparesis 2. White matter disease, concerning for demyelinating disease 3. Uncontrolled hypertension 4. Tobacco dependence 5. Abdominal pain Recommendation: Patient continues to have weakness on the right side. After reviewing her MRI of the brain which did not show any evidence of acute ischemia , however, it did show over 50 white matter lesions. Given the fact patient states she is had recurrent neurological symptoms for several years but never sought medical attention for this, she will need further outpatient neurological workup for possible multiple sclerosis. Continue IV Solu-Medrol 250 mg every 8 hours. Continue physical therapy and occupational therapy. Continue blood pressure control. Continue medical management. We will discuss and do further workup for possible demyelinating disease in the office setting. I will continue to follow with you. Further recommendations to follow. I performed an examination of the patient and discussed the management with the WATER RESOURCES TECHNICAL OFFICER. I have reviewed the WATER RESOURCES TECHNICAL OFFICER notes and agree with the findings and plan of care.
[2016-12-23] MEDS: ARIPiprazole 2 MG TAB PO SCH (20:18)
[2016-12-23] MEDS: ATORVASTATIN 40 MG TAB PO SCH (20:18)
[2016-12-23 20:33] LABS: Glucose,Whole Blood 148 mg/dL (75-99)
[2016-12-24] MEDS: HYDROmorphone 1 MG/ML 1 ML SYRINGE IVP PRN ×3 (01:41→10:18)
[2016-12-24] MEDS: IPRATROPIUM 0.5 MG/2.5 ML NEBU INHALATION SCH (03:25)
[2016-12-24] MEDS: SODIUM CHLORIDE 0.9% 1,000 ML IV SCH ×2 (03:26→09:39)
[2016-12-24] MEDS: ALPRAZolam 0.5 MG TAB PO SCH ×2 (06:02→12:00)
[2016-12-24] MEDS: LEVOTHYROXINE 125 MCG TAB PO SCH (06:18)
[2016-12-24 06:55] LABS: Glucose,Whole Blood 125 mg/dL (75-99)
[2016-12-24 07:53] VITALS: RESP 18
[2016-12-24] MEDS: INSULIN LISPRO (humaLOG) 300 UNIT/3 ML VIAL SQ SCH ×2 (08:01→12:01)
[2016-12-24] MEDS: NICOTINE 14MG/24HR PATCH TRANSDERM SCH (08:04)
[2016-12-24] MEDS: CLOPIDOGREL 75 MG TAB PO SCH (08:04)
[2016-12-24] MEDS: PANTOPRAZOLE 40 MG TABLET PO SCH (08:04)
[2016-12-24] MEDS: amLODIPine 5 MG TAB PO SCH (08:04)
[2016-12-24] MEDS: DOCUSATE 100 MG CAP PO SCH (08:04)
[2016-12-24] MEDS: HYDROcodone/APAP 7.5-325MG 1 EACH TAB PO SCH ×2 (08:05→12:04)
[2016-12-24] MEDS: VENLAFAXINE HCL ER 150 MG CAP PO SCH (08:05)
[2016-12-24 08:27] LABS: Basophils % (A) 0 %; CH 32.3; Eosinophils # (A) 0.1 k/uL (0-0.7); Eosinophils % (A) 0 %; HCT 42.1 % (34.0-46.0); HDW 2.39; HGB 13.4 gm/dL (11.4-16.0); Luc # (Auto) 0.06; Luc % (Auto) 0; Lymphocytes # (A) 1.4 k/uL (1.0-4.8); Lymphocytes % (A) 7 %; MCH 32.2 pg (25.0-35.0); MCHC 31.8 g/dL (31.0-37.0); MCV 101.3 fL (80.0-100.0); Macrocytosis Slight; Mean Platelet Volume 6.7; Monocytes # (A) 0.5 k/uL (0-1.0); Monocytes % (A) 2 %; Neutrophils # (A) 17.9 k/uL (1.3-7.7); Neutrophils % (A) 90 %; RBC 4.15 m/uL (3.80-5.40); RDW 13.9 % (11.5-15.5); WBC 19.8 k/uL (3.8-10.6); WBC (Perox) 20.19
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
[2016-12-24] MEDS ORDERED: CYCLOBENZAPRINE 10 MG TAB PO PRN (10:50)
[2016-12-24 11:41] LABS: Glucose,Whole Blood 112 mg/dL (75-99)
[2016-12-24 15:26] VITALS: BP 143/92; PULSE 65; TEMP 97.8
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
== END 2016-12-24 17:14 | disposition home health service (06) | DRG 60 ==
LOC: EC 10:27 → 6SEL 12:50 → 5MS5E 12-23 11:39
PROVIDERS: ADMIT Internal Medicine; ATTEND Internal Medicine
DX: G35 Multiple sclerosis (principal); G81.91 Hemiplegia, unspecified affecting right dominant side; I08.1 Rheumatic disorders of both mitral and tricuspid valves; I10 Essential (primary) hypertension; E86.0 Dehydration; R00.1 Bradycardia, unspecified; R29.711 NIHSS score 11; F17.200 Nicotine dependence, unspecified, uncomplicated; F12.90 Cannabis use, unspecified, uncomplicated; F41.0 Panic disorder [episodic paroxysmal anxiety]; F41.1 Generalized anxiety disorder; F32.9 Major depressive disorder, single episode, unspecified; I25.10 Atherosclerotic heart disease of native coronary artery without angina pectoris; M19.041 Primary osteoarthritis, right hand; M19.042 Primary osteoarthritis, left hand; M16.0 Bilateral primary osteoarthritis of hip; J44.9 Chronic obstructive pulmonary disease, unspecified; G89.29 Other chronic pain; E03.9 Hypothyroidism, unspecified; F43.10 Post-traumatic stress disorder, unspecified; H53.2 Diplopia; K29.70 Gastritis, unspecified, without bleeding; K59.03 Drug induced constipation; T40.2X5A Adverse effect of other opioids, initial encounter; N83.291 Other ovarian cyst, right side; Z90.721 Acquired absence of ovaries, unilateral; Z88.8 Allergy status to other drugs, medicaments and biological substances; Z95.5 Presence of coronary angioplasty implant and graft; Z88.6 Allergy status to analgesic agent; Z85.3 Personal history of malignant neoplasm of breast; I25.2 Old myocardial infarction; Z85.850 Personal history of malignant neoplasm of thyroid; Z91.013 Allergy to seafood; Z79.891 Long term (current) use of opiate analgesic; Z79.899 Other long term (current) drug therapy; Z82.49 Family history of ischemic heart disease and other diseases of the circulatory system; Z79.82 Long term (current) use of aspirin
CPT/HCPCS: 36415; 70450; 70496; 70498; 70553; 74022; 74177; 80053; 80061; 81001; 82533; 82550; 82553; 83090; 83690; 83735; 84100; 84439; 84443; 84484; 85025; 85610; 85730; 86304; 87086; 93005; 93306; 93880; 96361; 96372; 96374; 96375; 99285